=== PATIENT | male | born 1945 | race Caucasian/White ===

== ENCOUNTER 2018-02-27 14:39 | Emergency (ER) | payer OTHER, BC ==
[~2018-02-27] VITALS: Ht 172.7 cm; Wt 63.7 kg
[2018-02-27] MEDS ORDERED: SPIRIVA RESPIMAT4 GM IH (15:43)
[2018-02-27] MEDS ORDERED: METFORMIN HCL500 M1 PO (15:45)
[2018-02-27] MEDS ORDERED: TRADJENTA5 MG PO (15:45)
[2018-02-27] MEDS ORDERED: ROSUVASTATIN CA10 MG PO (15:46)
[2018-02-27] MEDS ORDERED: ALLOPURINOL300 MG PO (15:46)
[2018-02-27] MEDS ORDERED: VENTOLIN HFA18 GM IH (15:47)
[2018-02-27] MEDS ORDERED: SYMBICORT60 INHALAT IH (15:48)
[2018-02-27] MEDS ORDERED: LOSARTAN POTASS25 MG PO (15:50)
[2018-02-27 17:46] VITALS: BP 136/73
== END 2018-02-27 17:46 | disposition home or self-care (01) ==
LOC: EME 14:39
PROC: 0HQLXZZ Repair Left Lower Leg Skin, External Approach (ICD-10-PCS; principal; 2018-02-27)
DX: S81.011A Laceration without foreign body, right knee, initial encounter (principal); S50.311A Abrasion of right elbow, initial encounter; S50.812A Abrasion of left forearm, initial encounter; W11.XXXA Fall on and from ladder, initial encounter; M11.262 Other chondrocalcinosis, left knee; J44.9 Chronic obstructive pulmonary disease, unspecified; I10 Essential (primary) hypertension; E78.5 Hyperlipidemia, unspecified; E11.9 Type 2 diabetes mellitus without complications; Z79.84 Long term (current) use of oral hypoglycemic drugs
CPT/HCPCS: 73564; 99281; 99284